=== PATIENT | male | born 1985 | race Two or more races ===

== ENCOUNTER 2024-05-11 18:35 | Emergency (ER) | payer OTHER, SELFPAY ==
[2024-05-11 18:37] VITALS: BP 138/73; PULSE 117; RESP 20; TEMP 37.5; O2SAT 99; BMI 70.4
--- NOTE | 2024-05-11 18:52 | XR_ITS ---
Examination: CT abdomen with intravenous contrast CT pelvis with intravenous contrast 2-D coronal reconstructions 2-D sagittal reconstructions Date and time of exam:May 11, 2024 2020 hrs. Comparison June 19, 2018 Indications: Palpable mass in the right buttock region noticed beginning one week ago. CTDI: vol (mGy) 32.6 DLP: (mGycm) 968 Technique: Multiple axial sections of the abdomen and pelvis have been obtained. 64 slice high-resolution scanner used. 3 mm axial sections have been obtained, post intravenous injection 60 cc [id number] 2-D sagittal, coronal reconstructions obtained. Low dose protocols were performed. One or more of the following dose reduction techniques were used; automated exposure control, adjustment of the mA and/or KV according to patient size, use of iterative reconstruction technique. Findings: No focal liver or splenic lesions No gallstones No pancreatic or adrenal mass No renal or ureteral calculi, no hydronephrosis Normal appendix Aorta normal size 20 mm fat-containing umbilical hernia No bowel obstruction Scattered colonic diverticulosis, no diverticulitis Urinary bladder intact No prostatomegaly Cellulitis pattern right buttock region extending to the intergluteal fold Mild inflammatory change posterior to the anus Abscess in the posterior buttock region medially, axial image 305, measuring 4.1 x 3.4 x 3.4 cm Impression: Abscess in the posterior right buttock region, 4.1 x 3.4 x 3.4 cm, axial image 305
--- NOTE | 2024-05-11 18:53 | EDRME_ITS ---
Rapid Medical Screening Exam [facility] Arrival date/time: 05/11/24 18:35 39M with history of alcohol use presents to ED with 1 week of large R buttock abscess and fevers/chills. Chief Complaint: General Adult/Misc Complain Vital signs: Vital Signs Temperature 99.5 F 05/11/24 18:37 Pulse Rate 117 H 05/11/24 18:37 Respiratory Rate 20 05/11/24 18:37 Blood Pressure 138/73 H 05/11/24 18:37 Pulse Oximetry (%) 99 05/11/24 18:37 Oxygen Delivery Method Room Air 05/11/24 18:37
[2024-05-11 19:25] LABS: Lactate (Lactic Acid) 1.7 mMol/L (0.4-2.0)
[2024-05-11 19:34] LABS: Basophils % (Auto) 0 % (0-2.5); Eosinophils # (Auto) 0.1 Thou/mm3 (0.0-0.5); Eosinophils % (Auto) 1 % (0-10); Hematocrit 43.4 % (41.0-53.0); Hemoglobin 14.3 g/dL (13.5-16.0); Immature Granulocytes % (Auto) 1 % (0-0); Immature Granulocytes Auto 0.07 Thou/mm3 (0.00-0.00); Lymphocytes # (Auto) 2.4 Thou/mm3 (1.0-4.8); Lymphocytes % (Auto) 17 % (10-50); Mean Corpuscular HGB Conc 32.9 g/dl (31.0-37.0); Mean Corpuscular Hemoglobin 27.9 pg (25.0-35.0); Mean Corpuscular Volume 85 fL (80-100); Monocytes # (Auto) 0.8 Thou/mm3 (0.0-0.8); Monocytes % (Auto) 5 % (0-12); Neutrophils # (Auto) 10.8 Thou/mm3 (1.8-7.7); Neutrophils % (Auto) 76 % (37-80); Nucleated Red Blood Cell % 0 /100 WBC (0); Platelet Count 268 Thou/mm3 (140-440); RDW Standard Deviation 41.1 fL (35.1-43.9); Red Blood Count 5.12 Miln/mm3 (4.50-5.90); White Blood Count 14.1 Thou/mm3 (3.8-10.6)
[2024-05-11 19:58] LABS: Alanine Aminotransferase 15 U/L (10-49); Albumin, Serum 4.8 gm/dL (3.5-5.0); Albumin/Globulin Ratio 1.5 (1.2-2.2); Alkaline Phosphatase 111 U/L (46-116); Anion Gap 8 (7-16); Aspartate Amino Transferase 18 U/L (0-34); BUN/Creatinine Ratio 16 Ratio (12-20); Blood Urea Nitrogen 13 mg/dL (9-23); Calcium 9.8 mg/dL (8.3-10.6); Calcium (Corrected) 9.8 mg/dL (8.5-10.1); Carbon Dioxide 26.7 mMol/L (20.0-31.0); Chloride 102 mMol/L (98-107); Creatinine (Component) 0.8 mg/dL (0.6-1.3); Estimated Creatinine Clearance 210.6 mL/min (>60); Globulin 3.3 gm/dL (2.3-3.5); Glucose 104 mg/dL (74-106); Osmolality,Calculated 273 (275-295); Procalcitonin 0.06 ng/ml (0.0-0.49); Sodium 137 mMol/L (136-145); Total Protein 8.1 gm/dL (5.7-8.2); eGFR > 60 See Note
[2024-05-11 21:37] VITALS: BP 123/77; PULSE 101; RESP 18; TEMP 38.7; O2SAT 97
[2024-05-11 21:38] VITALS: BP 123/77; PULSE 98; RESP 16; O2SAT 97
[2024-05-11 22:09] VITALS: TEMP 38.7
[2024-05-11] MEDS: PIPER/TAZO 3.375 GM 3.375 GM/50 ML BAG IV (22:09)
[2024-05-11] MEDS: SODIUM CHLORIDE 0.9% 1000 ML 1,000 ML 999 ML IV ×2 (22:09)
[2024-05-11] MEDS: ACETAMINOPHEN 500 MG TABLET 1000 MG PO (22:09)
[2024-05-11] MEDS: LIDOCAINE HCL 1% 20 ML VIAL INFL (22:48)
[2024-05-11 23:05] VITALS: TEMP 38.1
[2024-05-12 00:21] VITALS: BP 143/91; PULSE 99; RESP 16; TEMP 37.7; O2SAT 95
--- NOTE | 2024-05-12 00:22 | EDNOTE_ITS ---
<Statement entered by Barbara Newsome MD - 05/12/24 19:16> I, Barbara Newsome MD, have reviewed the history, exam, and assessment of the patient. I have evaluated the patient independently and agree with the plan of care documented by [ ]. All diagnostic studies were reviewed and discussed. I confirm the diagnosis as documented by the Resident. I was present during the Medical Decision Making for this patient. The patient's plan of care was created between myself and the Resident and consistent with our discussion of the patient's case. 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 Patient states that he has right buttock started with a mild itch that turned into a rash and ultimately progressed into a painful burning sensation within days. He feels worse burning pain in his buttock whenever he walks and his cheeks touch . Today he wiped his butt and yellow discharge pus was noted. He visited his PCP at Dr. Lynn's office and they were unable to drain the skin. From the doctor's office he was referred to come into the ED. He endorses that he feels a tense sensation now. Patient denies headache, chest pain, palpitation, shortness of breath, dizziness, nausea, vomiting, diarrhea, or constipation. Allergies: none. Medications: tylenol, FHx: HTN mother and father, skin cyst- mother. Surgical hx: none. Social hx: remote drinker- 5 years ago. Denies illicit drug use. complaint: right buttock abcess Onset (ago): day(s) Location: buttocks Radiation: non-radiation Severity: moderate and severe Quality: burning Consistency: constant Relieving factors: immobilization Exacerbating factors: movement Related Data Previous Rx's ?Medication ?Instructions ?Recorded doxycycline hyclate 100 mg capsule 100 mg PO QDAY 1 week #7 caps 05/11/24 Allergies Allergy/AdvReac Type Severity Reaction Status Date / Time No Known Allergies Allergy Verified 05/11/24 23:53 Review of Systems Review of Systems Systems Reviewed: All systems reviewed, normal except as documented Past Medical History Social History SOCIAL: Patient does not smoke Drinking history as in the history of present illness Past Medical History Comments PMH COMMENT: Noncontributory ED Exam Narrative Physical exam: Constitutional: well-developed, obese male in no acute distress with at bedside. HEENT: NCAT, EOMI, reactive round pupils b/l, patent nares b/l, moist mucous membranes, saturating on room air Lung: CTAB, no wheezing, no rhonchi, no crackles of lower lobes bilaterally. Diminished breath sounds b/l d/t body habitus. Heart: Regular S1S2, no murmurs, gallops, or rubs Abdomen: Soft, non-tender, ++ bowel sounds present throughout, central obesity present. Extremities: No cyanosis, clubbing, no edema of b/l legs, 2+ dorsalis pedis pulses present b/l Neurologic: No focal sensory or motor deficits noted, AOx3, appropriate affect Skin: Warm, dry, no lesions or rashes noted Course Quality Measures none Orders Category Date Time Status CT Screening NOW Care 05/11/24 18:52 Completed Insert IV NOW Care 05/11/24 18:[address] abdomen pelvis w con Stat Exams 05/11/24 18:52 Completed Blood Culture (Lab) Stat Lab 05/11/24 22:15 Received CBC Stat Lab 05/11/24 19:12 Completed CMP [Comprehensive Metabolic Panel] Stat Lab 05/11/24 19:12 Completed Lactate (Lactic Acid) Stat Lab 05/11/24 19:12 Completed Procalcitonin Stat Lab 05/11/24 19:12 Completed Acetaminophen Tab [Tylenol ES Tab] Med 05/11/24 22:00 Discontinued 1,000 mg PO X1 ONE Lidocaine 1% 20 ml [Xylocaine 1% 20 ML] Med 05/11/24 22:44 Discontinued 20 ml INFL X1 ONE Lidocaine 1% Pf 5 ml [Xylocaine 1% Pf 5 ml] Med 05/11/24 22:04 Discontinued 5 ml IM X1 ONE Piper/Tazo 3.375 gm [Zosyn] Med 05/11/24 21:58 Discontinued 3.375 gm in 50 ml IV X1 Sodium Chloride 0.9% 1000 ml [Ns] 1,000 ml Med 05/11/24 21:58 Discontinued IV 999 mls/hr Sodium Chloride 0.9% 1000 ml [Ns] 1,000 ml Med 05/11/24 21:58 Discontinued IV 999 mls/hr Vital Signs Vital signs: Vital Signs Temperature 99.5 F 05/11/24 18:37 Pulse Rate 117 H 05/11/24 18:37 Respiratory Rate 20 05/11/24 18:37 Blood Pressure 138/73 H 05/11/24 18:37 Pulse Oximetry (%) 99 05/11/24 18:37 Oxygen Delivery Method Room Air 05/11/24 18:37 [facility] Patient data External records reviewed:: [facility] previous records Clinical information provided by:: patient and spouse Social determinants that could affect healthcare access:: none Patient has the following chronic illnesses:: H/o pancreatitis and obesity How is presenting disease/condition affected by chronic disease/condition?: e xacerbated by Evaluation data The following diagnostics were reviewed and interpreted by me:: lab results and radiology exam(s) Lab and/or radiology exams considered but not ordered:: None Interpretation Summary: Blood pressure: 138/73, heart rate 117, and febrile. Procalcitonin and lactic acid within normal limits. CT a/p: 20 mm fat-containing umbilical hernia, Scattered colonic diverticulosis, no diverticulitis Cellulitis pattern right buttock region extending to the intergluteal fold, Mild inflammatory change posterior to the anus, Abscess in the posterior buttock region medially, axial image 305, measuring 4.1 x 3.4 x 3.4 cm. Medications Medications considered but not ordered:: None Medication administrations:: Medication Administration History Discontinued Medications Acetaminophen (Acetaminophen 500 Mg Tablet) 1,000 mg PO X1 ONE Stop: 05/11/24 22:01 Last Admin: 05/11/24 22:09 Dose: 1,000 mg Documented By: VALENTE Piperacillin/Tazobactam/Dextrose (Zosyn) 3.375 gm in 50 mls @ 100 mls/hr IV X1 ONE Stop: 05/11/24 22:27 Last Infusion: 05/11/24 23:10 Dose: Infused Documented By: Admin: 05/11/24 22:09 Dose: 100 mls/hr Documented By: VALENTE Sodium Chloride (Ns) 1,000 mls @ 999 mls/hr IV .Q1H1M ONE Stop: 05/11/24 22:58 Last Infusion: 05/11/24 23:25 Dose: Infused Documented By: Admin: 05/11/24 22:09 Dose: 999 mls/hr Documented By: VALENTE Sodium Chloride (Ns) 1,000 mls @ 999 mls/hr IV .Q1H1M ONE Stop: 05/11/24 22:58 Last Infusion: 05/11/24 23:10 Dose: Infused Documented By: Admin: 05/11/24 22:09 Dose: 999 mls/hr Documented By: VALENTE Lidocaine HCl (Lidocaine Inj Pf 1% 5 Ml Vial) 5 ml IM X1 ONE Stop: 05/11/24 22:05 Last Admin: 05/11/24 22:52 Dose: Not Given Documented By: TEE Non-Admin Reason: Discontinued Lidocaine HCl (Lidocaine Hcl 1% 20 Ml Vial) 20 ml INFL X1 ONE Stop: 05/11/24 22:45 Last Admin: 05/11/24 22:48 Dose: 20 ml Documented By: TEE Acetaminophen, Zosyn, sodium chloride, lidocaine. Consultations Consultation(s) initiated? (list below): No Diagnosis Differential Diagnosis ED Complaint MDM: Cellulitis Most likely diagnosis given after review of the tests above:: Abcess, right buttock Admission Indicated Admission indicated?: not indicated Explain why admission is indicated or not indicated:: Admission is not indicated mainly because patient's sepsis was treated with fluids and Tylenol followed by incision and drainage with packing of abcess. Patient can be treated at home but must come into ED or with his PCP to continue with daily wound care/ packing. Admission Request Was there a request for admission?: No Disposition Plan Disposition Plan: Discharge Discharge Attestation Discharge Attestation: The patient and all family members were given an opportunity to ask questions and understood the discharge instructions. Discharge instructions specifically effects, indications for sooner follow up or return to the emergency department, and the expected course of current diagnosis. 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 Patient states that he has right buttock started with a mild itch that turned into a rash and ultimately progressed into a painful burning sensation within days. Pus drained from his buttock on Thursday05/10/24. In the ED, cellulitis pattern right buttock region extending to the intergluteal fold, mild inflammatory change posterior to the anus, and abscess in the posterior buttock region medially, axial image 305, measuring 4.1 x 3.4 x 3.[address] a/p. Patient was found to be septic with source of infection being right buttock abscess, fever and tachycardia. Patient's fever and tachycardia resolved with 2 L fluid and Tylenol administration. Patient does have active signs of infection requiring treatment with antibiotics and incision and drainage of the abscess. Subsequently, he was done and patient was informed to follow-up with packing in either the ED tomorrow for follow-up with his PCP for wound care/packing of the drained abscess. Differential Diagnosis Differential Diagnosis: Cellulitis Lab Data 05/11/24 19:12 05/11/24 19:12 Labs: Lab Results 05/11/24 05/11/24 Range/Units 19:12 22:30 WBC 14.1 H (3.8-10.6) Thou/mm3 RBC 5.12 (4.50-5.90) Miln/mm3 Hgb 14.3 (13.5-16.0) g/dL Hct 43.4 (41.0-53.0) % MCV 85 (80-100) fL MCH 27.9 (25.0-35.0) pg MCHC 32.9 (31.0-37.0) g/dl RDW Std Deviation 41.1 (35.1-43.9) fL Plt Count 268 (140-440) Thou/mm3 Neut % (Auto) 76 (37-80) % Lymph % (Auto) 17 (10-50) % Wilkes % (Auto) 5 (0-12) % Eos % (Auto) 1 (0-10) % Baso % (Auto) 0 (0-2.5) % Neut # (Auto) 10.8 H (1.8-7.7) Thou/mm3 Lymph # (Auto) 2.4 (1.0-4.8) Thou/mm3 Wilkes # (Auto) 0.8 (0.0-0.8) Thou/mm3 Eos # (Auto) 0.1 (0.0-0.5) Thou/mm3 Baso # (Auto) 0.0 (0.0-0.2) Thou/mm3 Immature Gran # (Auto) 0.07 H (0.00-0.00) Thou/mm3 Absolute Nucleated RBC 0.00 (0.00-0.00) Thou/mm3 Immature Gran % 1 H (0-0) % Nucleated RBC % 0 (0) /100 WBC Sodium 137 (136-145) mMol/L Potassium 4.0 (3.4-5.1) mMol/L Chloride 102 (98-107) mMol/L Carbon Dioxide 26.7 (20.0-31.0) mMol/L Anion Gap 8 (7-16) BUN 13 (9-23) mg/dL Creatinine 0.8 (0.6-1.3) mg/dL Estim Creat Clear Calc 210.6 (>60) mL/min eGFR > 60 (60 - ) See Note BUN/Creatinine Ratio 16 (12-20) Ratio Glucose 104 (74-106) mg/dL Calculated Osmolality 273 L (275-295) Lactic Acid 1.7 (0.4-2.0) mMol/L Calcium 9.8 (8.3-10.6) mg/dL Corrected Calcium 9.8 (8.5-10.1) mg/dL Total Bilirubin 1.0 (0.3-1.2) mg/dL AST 18 (0-34) U/L ALT 15 (10-49) U/L Alkaline Phosphatase 111 (46-116) U/L Total Protein 8.1 (5.7-8.2) gm/dL Albumin 4.8 (3.5-5.0) gm/dL Globulin 3.3 (2.3-3.5) gm/dL Albumin/Globulin Ratio 1.5 (1.2-2.2) Procalcitonin 0.06 Cancelled (0.0-0.49) ng/ml Discharge Plan Plan Patient Disposition: HOME (Self Care) Patient condition on transfer: Stable Health Concerns: Please take doxycycline 100 mg twice daily orally for buttock abscess for 1 week. Please return on 05/12/24 for assistance with packing wound abscess. If symptoms worsen or you develop fever, chills, nausea, vomiting or dizziness, please return to the ED. Prescriptions/Referrals Prescriptions/Med Rec: New doxycycline hyclate 100 mg capsule 100 mg PO QDAY 7 Days Qty: 7 0RF Referrals: Crow Mcmillan [Primary Care Provider] - In 1 week Problem List Clinical Impression: Abscess of buttock, right Patient/Caregiver Discharge Instructions Education Materials: ED Abscess Antibiotic ..., ED Abscess, Incision And Drainage Print Language: Mohawk Stand Alone Forms: Jessy Award Info., Patient Portal Info Letter
== END 2024-05-12 00:29 | disposition home or self-care (01) ==
PROVIDERS: Physician Assistant; Emergency Provider Emergency Medicine; PCP Physician Assistant
DX: L02.31 Cutaneous abscess of buttock (principal)
CPT/HCPCS: 10060; 36415; 74177; 80053; 81001; 83605; 84145; 85025; 87040; 87086; 96365; 99285; A4649; J2543; J3490; J7030; Q9967; A9270

== ENCOUNTER 2024-05-12 18:19 | Emergency (ER) | payer OTHER, SELFPAY ==
[2024-05-12 18:19] VITALS: BMI 62.6
[2024-05-12 18:41] VITALS: BP 160/89; PULSE 95; RESP 20; TEMP 36.6; O2SAT 96
--- NOTE | 2024-05-12 19:15 | EDNOTE_ITS ---
<Statement entered by Barbara Newsome MD - 05/13/24 19:25> As co-signing physician, I was present and available for consult prn. I concur with the plan and care as documented by the midlevel provider. ED Skin Abcess FB-RME/HPI General Chief complaint: Skin/Abscess/Foreign Body Stated complaint: REPACKING OF ABSCESS Time Seen by Provider: 05/12/24 19:12 Arrival date/time: 05/12/24 18:19 RME / HPI RME / HPI narrative: 39-year-old male patient significant history of morbid obesity, came in for evaluation regarding wound check,/repacking of wound, status post incision and drainage, right buttock. Patient came here yesterday for abscess to the right buttock, incision and drainage was done. Patient denies any pain, denies any fever denies any complaint. Related Data Previous Rx's ?Medication ?Instructions ?Recorded doxycycline hyclate 100 mg capsule 100 mg PO QDAY 1 week #7 caps 05/11/24 sulfamethoxazole 800 1 tab PO BID 7 days #14 tabs 05/12/24 mg-trimethoprim 160 mg tablet (Bactrim DS) Allergies Allergy/AdvReac Type Severity Reaction Status Date / Time No Known Allergies Allergy Verified 05/11/24 23:53 Review of Systems Review of Systems Narrative Review of Systems: Review of system reviewed and within normal limits except mentioned in HPI ED Exam Narrative Physical exam: VITAL SIGNS: Reviewed. GENERAL APPEARANCE: Alert and interactive, follows commands, no acute distress, HEAD AND FACE: Non-traumatic. ABDOMEN: Soft, positive bowel sounds, nondistended, no guarding, nontender, no rebound, no masses, RECTAL: Status post incision and drainage, with packing intact, no drainage noted, nonfluctuant right buttock GENITAL: Deferred. NEUROLOGICAL: Gross motor function intact sensory function intact, Appropriate for age. MUSCULOSKELETAL: low back nontender, full range of motion. EXTREMITIES: Nontender, full range of motion. SKIN: Color pink, dry, no rash, no lacerations, no abrasions, no contusions. LYMPHATICS: Deferred. Course Quality Measures none Vital Signs Vital signs: Vital Signs Temperature 97.9 F 05/12/24 18:41 Pulse Rate 95 05/12/24 18:41 Respiratory Rate 20 05/12/24 18:41 Blood Pressure 160/89 H 05/12/24 18:41 Pulse Oximetry (%) 96 05/12/24 18:41 Oxygen Delivery Method Room Air 05/12/24 18:41 Skin / Abscess / Foreign Body MDM Narrative MDM Narrative:: 39-year-old male patient significant history of morbid obesity, came in for evaluation regarding wound check,/repacking of wound, status post incision and drainage, right buttock. Patient came here yesterday for abscess to the right buttock, incision and drainage was done. Patient denies any pain, denies any fever denies any complaint. Removal of packing done by me, repacking was also done. Patient tolerated the procedure well. Dressing applied Patient data External records reviewed:: None Clinical information provided by:: none Social determinants that could affect healthcare access:: none Patient has the following chronic illnesses:: None How is presenting disease/condition affected by chronic disease/condition?: no chronic disease Evaluation data The following diagnostics were reviewed and interpreted by me:: other (specify) (None) Lab and/or radiology exams considered but not ordered:: None Interpretation Summary: None Medications / Prescriptions Medications or Prescriptions considered but not ordered:: None Medication administrations:: None Consultations Consultation(s) initiated? (list below): No Diagnosis Skin/Abscess Differential Diagnosis: abscess of skin or subcutaneous tissue, cellulitis and other (Wound check, status post I&D buttock abscess) Most likely diagnosis given after review of the tests above:: Wound check, status post I&D, buttock abscess Admission Indicated Admission indicated?: not indicated Admission Request Was there a request for admission?: No Disposition Plan Disposition Plan: Discharge Discharge Attestation Discharge Attestation: The patient and all family members were given an opportunity to ask questions and understood the discharge instructions. Discharge instructions specifically effects, indications for sooner follow up or return to the emergency department, and the expected course of current diagnosis. Patient condition: Stable Discharge Plan Plan Patient Disposition: HOME (Self Care) Disposition Comment: stable Prescriptions/Referrals Prescriptions/Med Rec: New sulfamethoxazole-trimethoprim [Bactrim DS] 800-160 mg tablet 1 tab PO BID 7 Days Qty: 14 0RF No Action doxycycline hyclate 100 mg capsule 100 mg PO QDAY 7 Days Qty: 7 0RF Referrals: Nga Lynn MD [Primary Care Provider] - In 1 week Problem List Clinical Impression: Wound check, abscess Patient/Caregiver Discharge Instructions Discharge Activity: activity as tolerated Education Materials: Abscess Drainage Additional Instructions: Thank you for the opportunity for serving you today. You are stable for discharged . You are advised to: Follow-up with your PCP in 1 to 2 days Return to ED for worsening of symptoms Increase oral fluids Take medication as prescribed For repacking the wound every day for the next 3 days Print Language: Malay Stand Alone Forms: Jessy Award Info., Patient Portal Info Letter PA/LOLA Supervising Physician PA/LOLA Supervising Physician: MD Clau
== END 2024-05-12 20:46 | disposition home or self-care (01) ==
PROVIDERS: Emergency Provider Emergency Medicine; PCP Family Medicine
DX: L02.31 Cutaneous abscess of buttock (principal)
CPT/HCPCS: 99281

== ENCOUNTER → 2024-05-27 | Outpatient (CLI) | payer OTHER, SELFPAY | END | disposition home or self-care (01) | PROVIDERS: PCP Family Medicine; Referring Provider Family Medicine; Visit Provider Student in an Organized Health Care Education/Training Program | DX: L02.31 Cutaneous abscess of buttock (principal); E66.9 Obesity, unspecified | CPT/HCPCS: 99213; G0463 ==

== ENCOUNTER → 2024-05-30 | Outpatient (CLI) | payer OTHER, SELFPAY ==
[2024-05-30 09:45] LABS: Glucose Estimated Average 105 mg/dL (80-131); Hemoglobin A1C 5.3 % Hgb (4.8-6.0)
== END | disposition home or self-care (01) ==
PROVIDERS: PCP Family Medicine; Referring Provider Student in an Organized Health Care Education/Training Program; Visit Provider Student in an Organized Health Care Education/Training Program
DX: L02.31 Cutaneous abscess of buttock (principal); E66.813 Obesity, class 3
CPT/HCPCS: 36415; 83036

== ENCOUNTER → 2024-06-06 | Outpatient (CLI) | payer OTHER, SELFPAY | END | disposition home or self-care (01) | PROVIDERS: PCP Family Medicine; Referring Provider Family Medicine; Visit Provider Student in an Organized Health Care Education/Training Program | DX: L02.31 Cutaneous abscess of buttock (principal); E66.9 Obesity, unspecified | CPT/HCPCS: 99212; G0463 ==

== ENCOUNTER → 2025-05-17 | Outpatient (CLI) | payer OTHER, SELFPAY ==
[2025-05-17 08:39] LABS: Basophils # (Auto) 0.0 Thou/mm3 (0.0-0.2); Basophils % (Auto) 0 % (0-2.5); Eosinophils # (Auto) 0.1 Thou/mm3 (0.0-0.5); Eosinophils % (Auto) 1 % (0-10); Hematocrit 44.7 % (41.0-53.0); Hemoglobin 14.8 g/dL (13.5-16.0); Immature Granulocytes Auto 0.05 Thou/mm3 (0.00-0.00); Lymphocytes # (Auto) 2.0 Thou/mm3 (1.0-4.8); Lymphocytes % (Auto) 25 % (10-50); Mean Corpuscular HGB Conc 33.1 g/dl (31.0-37.0); Mean Corpuscular Hemoglobin 28.2 pg (25.0-35.0); Mean Corpuscular Volume 85 fL (80-100); Monocytes # (Auto) 0.5 Thou/mm3 (0.0-0.8); Monocytes % (Auto) 6 % (0-12); Neutrophils # (Auto) 5.3 Thou/mm3 (1.8-7.7); Neutrophils % (Auto) 67 % (37-80); Nucleated Red Blood Cell # 0.00 Thou/mm3 (0.00-0.00); Nucleated Red Blood Cell % 0 /100 WBC (0); Platelet Count 243 Thou/mm3 (140-440); RDW Standard Deviation 42.0 fL (35.1-43.9); Red Blood Count 5.24 Miln/mm3 (4.50-5.90); White Blood Count 8.0 Thou/mm3 (3.8-10.6)
[2025-05-17 08:42] LABS: Glucose Estimated Average 114 mg/dL (80-131); Hemoglobin A1C 5.6 % Hgb (4.8-6.0)
[2025-05-17 09:01] LABS: Alanine Aminotransferase 23 U/L (10-49); Albumin, Serum 4.8 gm/dL (3.5-5.0); Albumin/Globulin Ratio 1.7 (1.2-2.2); Alkaline Phosphatase 95 U/L (46-116); Anion Gap 11 (7-16); Aspartate Amino Transferase 23 U/L (0-34); BUN/Creatinine Ratio 14 Ratio (12-20); Bilirubin,Total 1.1 mg/dL (0.3-1.2); Blood Urea Nitrogen 11 mg/dL (9-23); Calcium 9.3 mg/dL (8.3-10.6); Calcium (Corrected) 9.3 mg/dL (8.5-10.1); Carbon Dioxide 28.6 mMol/L (20.0-31.0); Cardiac Risk Estimate 3.5 RATIO (4.0-6.7); Chloride 102 mMol/L (98-107); Cholesterol 149 mg/dL (132-200); Creatinine (Component) 0.8 mg/dL (0.6-1.3); Free T4 (Free Thyroxine) 1.39 ng/dL (0.89-1.76); Globulin 2.9 gm/dL (2.3-3.5); Glucose 94 mg/dL (74-106); HDL Cholesterol 43 mg/dL (40-60); LDL Cholesterol,Calculated 86 mg/dL (0-130); Osmolality,Calculated 282 (275-295); Potassium 4.8 mMol/L (3.4-5.1); Sodium 142 mMol/L (136-145); Thyroid Stimulating Hormone 2.17 uIU/mL (0.55-4.78); Total Protein 7.7 gm/dL (5.7-8.2); Triglycerides 101 mg/dL (30-150); eGFR > 60 See Note
== END | disposition home or self-care (01) ==
PROVIDERS: PCP Internal Medicine; Referring Provider Internal Medicine; Visit Provider Internal Medicine
DX: R00.2 Palpitations (principal); E66.01 Morbid (severe) obesity due to excess calories
CPT/HCPCS: 36415; 80053; 80061; 83036; 84439; 84443; 85025